=== PATIENT | female | born 1955 | race Caucasian/White ===

== ENCOUNTER 2018-11-08 06:55 | Inpatient (IN) ==
[2018-11-01 12:58] LABS: Appearance,Urine CLEAR; Bacteria,Urine 0 /hpf (0); Bilirubin,Urine NEG (NEG); Color,Urine YELLOW; Culture Indicated,Urine NO; Glucose,Urine (UA) NEGATIVE (NEG); Ketones,Urine NEG (NEG); Leukocyte Esterase,Urine NEG /uL (NEG); Mucus,Urine FEW /hpf (0); Nitrate,Urine NEG (NEG); Protein,Urine 30 mg/dL (NEG); Specific Gravity,Urine 1.024 (1.000-1.035); Urine Blood NEG mg/dL (<0.03); Urine RBC < 1 /hpf (0-1); Urine Squamous Epithelial Cell 1 /hpf (0-4); Urine WBC < 1 /hpf (0-4); Urobilinogen,Urine NEG (NEG)
[2018-11-01 16:02] LABS: Basophils # (Auto) 0 K/mcL (0.0-0.3); Basophils % (Auto) 0.3 % (0.0-2.0); Eosinophils # (Auto) 0.2 K/mcL (0.0-0.7); Eosinophils % (Auto) 2.6 % (0.0-7.0); Granulocytes % (Auto) 67.2 % (38.0-78.0); Hematocrit 39.1 % (36.0-48.0); Hemoglobin 12.9 g/dL (12.0-15.0); Lymphocytes # (Auto) 1.8 K/mcL (1.5-4.8); Lymphocytes % (Auto) 24.8 % (15.5-49.0); Mean Cell Volume 90.4 fL (80.0-100.0); Mean Corpuscular HGB Conc 32.9 g/dL (31.0-36.0); Mean Platelet Volume 10.5 fL (7.4-10.4); Monocytes # (Auto) 0.4 K/mcL (0.1-0.9); Monocytes % (Auto) 5.1 % (1.0-12.0); Platelet Count 277 K/mcL (140-440); RBC 4.32 M/mcL (4.00-5.20); WBC 7.4 K/mcL (4.5-11.0)
[2018-11-01 16:39] LABS: Estimated Average Glucose(eAG) 134 mg/dL; Hemoglobin A1C 6.3 % HGB (4.0-6.0)
[2018-11-01 16:56] LABS: Blood Urea Nitrogen 15 mg/dl (8-23); Calcium 9.2 mg/dl (8.6-10.4); Carbon Dioxide 29 mmol/L (22-30); Chloride 99 mmol/L (96-108); Glomerular Filtration Rate 80; Glucose 76 mg/dL (70-105); Potassium 3.8 mmol/L (3.3-5.1); Sodium 142 mmol/L (133-145)
[~2018-11-08 06:55] MED LIST: 0.9 % SODIUM CHLORIDE 9 ML, KETOROLAC 30 MG, ROPIVACAINE HCL/PF 49.5 ML, EPINEPHrine 0.... IJ SCH; CELECOXIB 200 MG CAPSULE PO SCH; GABAPENTIN 300 MG CAPSULE PO SCH; ceFAZolin 2 GM in DEXTROSE 5% IN WATER 50 ML IV SCH; oxyCODONE 10 MG TAB.ER.12H PO SCH
[2018-11-08] MEDS ORDERED: GLYCOPYRROLATE 0.2 MG/ML VIAL IV ONE (09:40)
[2018-11-08] MEDS ORDERED: ONDANSETRON 4 MG/2 ML VIAL IV ONE (09:40)
[2018-11-08] MEDS ORDERED: ROPIVACAINE HCL/PF 20 ML VIAL IJ ONE (09:40)
[2018-11-08] MEDS ORDERED: KETAMINE 100 MG/ML ML IV ONE (09:40)
[2018-11-08] MEDS ORDERED: PROPOFOL 200 MG/20 ML VIAL IV ONE (09:40)
[2018-11-08] MEDS ORDERED: TRANEXAMIC ACID 1,000 MG/10 ML VIAL IV ONE ×2 (09:40→11:09)
[2018-11-08] MEDS ORDERED: PHENYLEPHRINE 10 MG/ML VIAL IV ONE (09:40)
[2018-11-08] MEDS ORDERED: MIDAZOLAM 2 MG/2 ML VIAL IV ONE (09:40)
[2018-11-08] MEDS ORDERED: DEXAMETHASONE 10 MG/ML VIAL IV ONE (09:40)
[2018-11-08] MEDS ORDERED: LIDOCAINE HCL/PF 100 MG/5 ML SYRINGE IV ONE (09:40)
[2018-11-08] MEDS ORDERED: PROMETHAZINE 25 MG/ML VIAL IV PRN (10:10)
[2018-11-08] MEDS ORDERED: ePHEDrine 50 MG/ML AMPUL IV PRN (10:10)
[2018-11-08] MEDS ORDERED: ATROPINE SULFATE 0.4 MG/ML VIAL IV PRN (10:10)
[2018-11-08] MEDS ORDERED: MEPERIDINE 25 MG/ML SYRINGE IV PRN (10:10)
[2018-11-08] MEDS ORDERED: FLUMAZENIL 0.1 MG/ML ML IV PRN (10:10)
[2018-11-08] MEDS ORDERED: ACETAMINOPHEN 1,000 MG/100 ML BOTTLE IV ONE (10:10)
[2018-11-08] MEDS ORDERED: METOPROLOL TARTRATE 5 MG/5 ML VIAL IV PRN (10:10)
[2018-11-08] MEDS ORDERED: IPRATROPIUM/ALBUTEROL 3 ML AMPUL.NEB NEB PRN (10:10)
[2018-11-08] MEDS ORDERED: NALOXONE HCL 0.4 MG/ML VIAL IV PRN (10:10)
[2018-11-08] MEDS ORDERED: ONDANSETRON 4 MG/2 ML VIAL IV PRN ×2 (10:10→11:09)
[2018-11-08] MEDS ORDERED: fentaNYL 100 MCG/2 ML VIAL IV PRN (10:10)
[2018-11-08] MEDS ORDERED: diphenhydrAMINE 50 MG/ML VIAL IV PRN (10:10)
[2018-11-08] MEDS ORDERED: METHOCARBAMOL 1,000 MG/10 ML VIAL IV PRN (10:10)
[2018-11-08] MEDS ORDERED: LACTATED RINGERS 1,000 ML IV SCH (10:15)
[2018-11-08] MEDS ORDERED: FLEETS ADULT ENEMA PR PRN (11:09)
[2018-11-08] MEDS ORDERED: BISACODYL 10 MG SUPP.RECT PR PRN (11:09)
[2018-11-08] MEDS ORDERED: BENZOCAINE/MENTHOL 1 LOZENGE PO PRN (11:09)
[2018-11-08] MEDS ORDERED: MAGNESIUM HYDROXIDE 30 ML ORAL.SUSP PO PRN (11:09)
[2018-11-08] MEDS ORDERED: POLYETHYLENE GLYCOL 3350 17 GM PACKET PO PRN (11:09)
--- NOTE | 2018-11-08 11:09 | Brief Operative Note ---
Date of procedure: 11/08/18 Pre-op diagnosis: Left knee severe DJD Post-op diagnosis: same Procedure: Left robotic assisted total knee arthroplasty Grafts/Implants: Yes ([place] Triathlon 3 CR femur, 2 tibia, 10mm insert, 33 patella) Anesthesia: spinal, GLMA Findings: bone on bone patellofemoral arthritis Complications: none Surgeon: Jayme Looney Dancing Instructor: Thomas Meneses Estimated blood loss (cc): 20 Specimens Removed/Pathology: none sent Condition: stable Disposition: PACU
[2018-11-08] MEDS ORDERED: PROMETHAZINE 25 MG SUPP.RECT PR PRN (11:13)
[2018-11-08] MEDS: 0.9 % SODIUM CHLORIDE 1,000 ML IV SCH ×2 (12:34→22:21)
[2018-11-08] MEDS: FLUoxetine HCL 10 MG CAPSULE PO SCH ×2 (12:35→21:20)
[2018-11-08] MEDS: ATOMOXETINE HCL 10 MG PO SCH (12:35)
[2018-11-08] MEDS: KETOROLAC 30 MG/ML VIAL IV SCH ×3 (12:39→23:18)
[2018-11-08] MEDS: GABAPENTIN 300 MG CAPSULE PO SCH ×2 (12:46→21:20)
--- NOTE | 2018-11-08 13:24 | Operative Note ---
DATE OF OPERATION: 11/08/2018 PREOPERATIVE DIAGNOSIS: Left knee severe osteoarthritis. POSTOPERATIVE DIAGNOSIS: Left knee severe osteoarthritis. PROCEDURE PERFORMED: Left robotic-assisted total knee arthroplasty placing a [employer] Triathlon size 3 cruciate retaining femoral component, a size 2 tibial baseplate, a 10 mm X3 tibial insert with a 33 mm patellar button. SURGEON: Jayme Looney M.D. SANDWICH WRAPPER: David Meneses PA-C. The PA's assistance was required for the safe and efficient completion of the entire case. This provider's expertise and technical skill were required throughout the case. The PA assisted with preoperative coordination, intraoperative retraction, wound closure, dressing and splint application, as well as postoperative documentation and care coordination. ANESTHESIA: Spinal plus general. DRAINS: None. SPECIMENS: Bone cuts which were discarded. BLOOD LOSS: 20 mL. POSTOPERATIVE CONDITION: Stable. INDICATIONS FOR SURGERY: This is a 63-year-old female who has had significant left knee pain. Radiographs showed [id number] patellofemoral osteoarthritis. FINDINGS AT SURGERY: She had [id number] patellofemoral osteoarthritis, as well as some medial compartment degenerative changes as well. Post-implantation showed good limb alignment, patellar tracking, and joint stability. Also of note, she did have about 7 or 8 degrees of hyperextension prior to the procedure and was about 5 to 6 degrees short of full extension after. PROCEDURE IN DETAIL: The patient had been seen preoperatively and informed consent had been obtained after discussion of risks and benefits of surgery. Risks including, but not limited to, bleeding; infection, possibly requiring implant removal and prolonged IV antibiotics; injury to nerves, blood vessels, and other surrounding structures; anesthetic risks; incomplete or no resolution of symptoms; stiffness; swelling; instability; DVT and pulmonary embolus risks; and the possibility of needing further revision joint surgery. She understood and wished to proceed. The correct operative site was marked and then patient received spinal anesthesia. She was then taken to the operating room and LMA general given. The left lower extremity was carefully prepped and draped in normal sterile fashion. A time-out was performed verifying patient name, operative site, and plan. All skin surfaces were covered with Ioban. Esmarch was used to exsanguinate the extremity and tourniquet was inflated to 300 mmHg. Midline incision was made with a scalpel through skin and subcutaneous tissue. Hemostasis obtained with Bovie cautery. We irrigated with Irrisept and then a medial parapatellar arthrotomy made. Subperiosteal exposure was done of the anterior medial tibia and then the retropatellar fat pad was excised, as well as anterior horns of the menisci, and the ACL was transected. Femoral and tibial checkpoints were placed. Two stab incisions were made over the tibia and two over the femur and bicortical pins placed. The arrays were then connected. We started with the computer by checking hip center of rotation, followed by green probe to the medial and lateral malleoli, and then double-checks of the checkpoints with the green probe. The blue probe was then used to do our mapping. Rongeur was used to remove osteophytes. We then checked our flexion-extension gaps with the spoons. She had a quite lax knee, so we did end up having to raise the tibial component and distalize the femur. We ended up at 2 degrees of varus on the tibia, and I believe 1 extra degree on the femur. We then increased our external rotation to get 17 mm gaps in all four numbers. We did verify the trochlear groove would have satisfactory patellar tracking. Once we liked our numbers, we then used the robotic arm to make our bone cuts. We sized the tibia to a 2 which was externally rotated as bone coverage would allow and pinned into place. Boss reamer and keel punch were used to prepare the tibia and a keeled tibial trial was placed. Femur was elevated and a curved osteotome used to remove osteophytes and then a 3 femoral trial was placed. This just barely fit, so it was made flush on either side. This was pinned into place and then the peg holes were drilled. A 9 insert trial was placed. The knee was taken into extension. We checked with fluoroscopy, and we were down to 5 to 6 degrees short of full. We then measured the patella which was 21 mm thick. Freehand resection was done which took us down to about 12 mm. We then sized this to a 33 which was medialized. Peg holes were drilled. The trial was placed and then a lateral facetectomy performed with a saw. We then checked our patellar tracking and it was good without subluxation or tilt, so we went ahead and removed trial implants. Definitive implants were opened except for the insert. The joint was irrigated with Irrisept while antibiotic cement was mixed. We then cemented the tibia, followed by the femur. Excess cement was removed. The 9 insert trial was placed, and the patellar button was cemented. We cemented the patellar button and then while cement hardened, we removed checkpoints. We irrigated with Irrisept and then injected pain cocktail into the pericapsular and subcutaneous tissues. We checked our hyperextension which was about the same, so we went ahead and removed the arrays and pins. After cement had fully hardened, we flexed the knee up and removed any excess cement. It seemed as though the knee had stretched slightly, so we went ahead and opened a 10 insert. We removed the trial, irrigated Irrisept, and after a minute pulse lavaged with saline, then injected the posterior capsule with pain cocktail, and then impacted the definitive insert. The knee still had good extension and excellent stability. We went ahead and placed the knee in about 45 degrees of flexion. Interrupted #2 FiberWire [id number] were used around the superior quadrant of the patella, interrupted #1 Vicryl [id number] around the inferior quadrant, running #1 Vicryl for patellar tendon and quad tendon. A final Irrisept irrigation was done, after a minute final pulse lavage, and then 2-0 Monocryl for subcutaneous and betito for skin. Xeroform and sterile dressing were applied. Tourniquet was released. The patient was awakened, extubated, and transferred to recovery in stable condition. NANCY:desiree Job ID: [id number] Doc ID: [id number] Jayme Looney MD
--- NOTE | 2018-11-08 13:48 | XRay Report ---
HISTORY: Postop left knee arthroplasty FINDINGS: There is a well positioned total knee prosthesis. There is no fracture or abnormal soft tissue calcification around the joint. IMPRESSION: Well-positioned left knee prosthesis Interpreted and Authenticated by: Zion Ruiz 11/08/18
[2018-11-08] MEDS: 0.9 % SODIUM CHLORIDE 10 ML SYRINGE IV SCH ×2 (13:51→22:21)
[2018-11-08] MEDS: BUPRENORPHINE HCL 4 MG SL SCH ×2 (14:26→21:23)
[2018-11-08] MEDS: ceFAZolin 1 GM VIAL IV SCH (17:34)
[2018-11-08] MEDS: oxyCODONE/APAP 5/325MG TABLET PO PRN ×2 (18:00→22:06)
[2018-11-08] MEDS ORDERED: SENNOSIDES 1 TABLET PO SCH (21:00)
[2018-11-08] MEDS: DOCUSATE SODIUM 100 MG CAPSULE PO SCH (21:20)
[2018-11-08] MEDS: ASPIRIN 81 MG TAB.CHEW PO SCH (21:21)
[2018-11-09] MEDS: ceFAZolin 1 GM VIAL IV SCH (01:35)
[2018-11-09] MEDS: oxyCODONE/APAP 5/325MG TABLET PO PRN ×2 (03:29→07:22)
[2018-11-09] MEDS: ATOMOXETINE HCL 10 MG PO SCH (04:52)
[2018-11-09] MEDS: KETOROLAC 30 MG/ML VIAL IV SCH (06:06)
[2018-11-09] MEDS: GABAPENTIN 300 MG CAPSULE PO SCH (06:07)
[2018-11-09] MEDS: FLUoxetine HCL 10 MG CAPSULE PO SCH (06:07)
[2018-11-09] MEDS: 0.9 % SODIUM CHLORIDE 10 ML SYRINGE IV SCH (06:08)
--- NOTE | 2018-11-09 08:03 | Discharge Summary ---
Providers - Providers Patient information: Note initiated : 11/09/18 at 8:00 am Service Date, if different from initiated Date: [] Patient: Anushka Brush 63 y/o F admitted on 11/08/18 for Left Total Knee Arthroplastay Augustus . Chief Complaint: [] Discharge date: 11/09/18 Hospitalization Hospital course: Pt was admitted for a L TKA. Pt underwent the procedure on the day of admission. Pt spent one night on the floor prior to discharge for IV pain meds, IV abx and PT. Pt will take ASA 81mg for DVT prophylaxis. Will attend out-pt PT and f/u in 2 weeks. Discharge diagnosis: L Knee OA Exam - Exam Clean and dry: Yes Weight bearing status: as tolerated Ortho Discharge - TKA - Patient Instructions Diet: Regular Diet Activity: activity as tolerated Total Knee Protocol: For Total Knee: Start ROM JESSICA with stationary bike or rocking chair. Work on gaining full extension of knee. Posterior dislocation precautions provided. Hip abductor strengthening and gait training instructions provided. Apply Cryocuff as instructed. Dressing Care: May shower in 2 days - Follow Up Plan Disposition: Home, Self-Care Prognosis: Good Rehab Potential: Good Overall status at discharge: patient is progressing back to baseline - Orders For Discharge Prescriptions: Aspirin 81 mg PO BID #30 tab.chew oxyCODONE/APAP [Percocet 5-325 mg] 1 - 2 tab PO Q4HP PRN #75 tab PRN Reason: Pain Level 3-6 Pending Studies Resuscitation Status Full Code Diet Regular Diet Start TueNov 08 1110 Aspirin (Aspirin) 81 mg PO BID [facility] Last Admin: 11/08/18 21:21 Dose: 81 mg Documented by: VLAD Docusate Sodium (Colace) 100 mg PO BID [facility] Last Admin: 11/08/18 21:20 Dose: 100 mg Documented by: VLAD Fluoxetine HCl (Prozac) 10 mg PO BID@0500,1200 [facility] Last Admin: 11/09/18 06:07 Dose: 10 mg Documented by: Admin: 11/08/18 21:20 Dose: 10 mg Documented by: Admin: 11/08/18 12:35 Dose: Not Given Documented by: DEVANTE Gabapentin (Neurontin) 300 mg PO BID@0500,1200 [facility] Last Admin: 11/09/18 06:07 Dose: 300 mg Documented by: Admin: 11/08/18 21:20 Dose: 300 mg Documented by: Admin: 11/08/18 12:46 Dose: Not Given Documented by: [facility] Sodium Chloride (Sodium Chloride 0.9%) 1,000 mls @ 100 mls/hr IV .Q10H FOR[facility], [facility] Last Infusion: 11/09/18 06:14 Dose: 0 mls/hr Documented by: Admin: 11/08/18 22:21 Dose: 100 mls/hr Documented by: Infusion: 11/08/18 22:21 Dose: 100 mls/hr Documented by: Admin: 11/08/18 12:34 Dose: 100 mls/hr Documented by: [facility] Ketorolac Tromethamine (Toradol) 30 mg IV Q6 [facility] Stop: 11/10/18 06:01 Last Admin: 11/09/18 06:06 Dose: 30 mg Documented by: Admin: 11/08/18 23:18 Dose: 30 mg Documented by: Admin: 11/08/18 17:34 Dose: 30 mg Documented by: Admin: 11/08/18 12:39 Dose: 30 mg Documented by: [place] Morphine Sulfate (Morphine) 0 mg IV Q1HP PRN PRN Reason: PAIN LEVEL > 6 Last Admin: 11/09/18 01:16 Dose: 4 mg Documented by: Admin: 11/08/18 22:06 Dose: 4 mg Documented by: Admin: 11/08/18 21:03 Dose: 6 mg Documented by: Admin: 11/08/18 18:56 Dose: 4 mg Documented by: Admin: 11/08/18 16:51 Dose: 4 mg Documented by: [facility] Admin: 11/08/18 14:26 Dose: 2 mg Documented by: [facility] Ondansetron HCl (Zofran) 4 mg IV Q4HP PRN PRN Reason: Nausea And Vomiting Last Admin: 11/08/18 14:25 Dose: 4 mg Documented by: F Oxycodone/Acetaminophen (Percocet 5-325 Mg) 0 tab PO Q4HP PRN PRN Reason: PAIN LEVEL 3-6 Last Admin: 11/09/18 07:22 Dose: 2 tab Documented by: Admin: 11/09/18 03:29 Dose: 2 tab Documented by: Admin: 11/08/18 22:06 Dose: 2 tab Documented by: Admin: 11/08/18 18:00 Dose: 2 tab Documented by: DEVANTE Atomoxetine Hcl [ (Strattera] 10 Mg Tab) 1 dose PO BID@0500,1200 [facility] Last Admin: 11/09/18 04:52 Dose: Not Given Documented by: Admin: 11/08/18 12:35 Dose: Not Given Documented by: DEVANTE Buprenorphine Hcl 4 (Mg Tab) 1 dose SL TID [facility] Last Admin: 11/08/18 21:23 Dose: Not Given Documented by: Admin: 11/08/18 14:26 Dose: Not Given Documented by: DEVANTE Promethazine HCl (Phenergan) 25 mg GA DAILYP PRN PRN Reason: MIGRAINE HEADACHES Last Admin: 11/08/18 19:32 Dose: 25 mg Documented by: SHANICE Senna (Senokot) 2 tab PO HS [facility] Last Admin: 11/08/18 21:20 Dose: 2 tab Documented by: VLAD Sodium Chloride (Saline Flush) 10 ml IV Q8 [facility] Last Admin: 11/09/18 06:08 Dose: 10 ml Documented by: Admin: 11/08/18 22:21 Dose: Not Given Documented by: Admin: 11/08/18 13:51 Dose: Not Given Documented by: DEVANTE Shift Summary 11/09/18 03:07 Shift Summary by Tricia Rojo a/o x4, ambulatory with sba and fww, dressing to left knee with antonia wrap c/d/i, has used cryo cuff on and off,good about using foot pumps, tolerating po fluids/food well, was in alot of pain at beginning of shift after call to Dr turner adjustments were made to her meds, we have kept the pulse ox machine on/ and have o2 in use per nc at 2l/min, she recently stopped Suboxone so pain control was a little difficult, the last pain scale check she stated was a 5/10, and she is comfortable with it at 7/10, voiding well , last bladder scan at 0 cc, Initialized on 11/09/18 03:07 - END OF NOTE
[2018-11-09] MEDS: 0.9 % SODIUM CHLORIDE 1,000 ML IV SCH (08:11)
[2018-11-09] MEDS: DOCUSATE SODIUM 100 MG CAPSULE PO SCH (08:44)
[2018-11-09] MEDS: ASPIRIN 81 MG TAB.CHEW PO SCH (08:44)
[2018-11-09] MEDS: BUPRENORPHINE HCL 4 MG SL SCH (08:48)
[2018-11-09] MEDS ORDERED: LOSARTAN 25 MG TABLET PO SCH (09:00)
== END 2018-11-09 10:00 | disposition home or self-care (01) | DRG 470 ==
LOC: MEDSUR 06:55
PROVIDERS: ADMIT Orthopaedic Surgery; ATTEND Orthopaedic Surgery